=== PATIENT | male | born 1975 | race African-American/Black ===

== ENCOUNTER 2019-04-24 16:13 | Inpatient (IN) | payer MEDICAID ==
[~2019-04-24] VITALS: Ht 175.3 cm; Wt 112.6 kg
[2019-04-24] MEDS ORDERED: KETOROLAC 30MG/ML VIAL IV ONE (19:45)
[2019-04-24 23:09] LABS: HEMATOCRIT. 40.8 % (42.0-52.0); HEMOGLOBIN. 13.1 g/dL (14.0-18.0); MEAN CORPUSCULAR HEMOGLOBIN 22.3 pg (28.0-32.0); MEAN CORPUSCULAR VOLUME 69.7 fL (80.0-94.0); MEAN PLATELET VOLUME 9.3 fl (7.4-10.4); PLATELET 193 x1000/uL (130-400); RED BLOOD CELL COUNT 5.86 mill/uL (4.7-6.1); RED CELL DISTRIBUTION WIDTH 16.2 % (11.6-14.6)
[2019-04-24 23:10] LABS: CHLORIDE 99 mEq/L (98-107)
[2019-04-25] MEDS ORDERED: SODIUM CHLORIDE 0.9% 1000ML BAG (SEPSIS BOLUS) IV ONE (00:15)
[2019-04-25] MEDS ORDERED: MORPHINE SULFATE 4 MG/ML CPJ (NOT FOR IM USE) IV ONE (00:15)
[2019-04-25] MEDS ORDERED: LEVOFLOXACIN 750MG PREMIX 150 ML IV ONE (00:15)
[2019-04-25 04:22] LABS: ATYPICAL LYMPHOCYTES 1; PLATELET ESTIMATE NORMAL
[2019-04-25 09:26] VITALS: BP 147/91
[2019-04-25] MEDS ORDERED: DIPHENHYDRAMINE 50MG/ML VIAL IV PRN (10:15)
[2019-04-25] MEDS ORDERED: IPRATROPIUM/ALBUTEROL 0.5-3(2.5)MG/3ML NEB INH PRN (10:15)
[2019-04-25] MEDS ORDERED: MAGNESIUM/ALUMINUM HYDROXIDE/SIMETHICONE 30ML UDC PO PRN (10:15)
[2019-04-25] MEDS ORDERED: GUAIFENESIN 200MG/10ML SUGAR FREE UDC PO PRN (10:15)
[2019-04-25] MEDS ORDERED: DOCUSATE SODIUM 100MG CAPSULE PO PRN (10:15)
[2019-04-25] MEDS ORDERED: ENOXAPARIN 40MG/0.4ML SYR SUBCUT SCH (10:15)
[2019-04-25 11:31] LABS: PHOSPHORUS 2.7 mg/dL (2.5-4.9)
[2019-04-25] MEDS: HYDROCODONE/ACETAMINOPHEN 5/325MG TABLET PO PRN ×2 (11:54→17:56)
[2019-04-25] MEDS: ENOXAPARIN 30MG/0.3ML SYR SUBCUT SCH ×2 (11:54→21:11)
[2019-04-25 12:00] VITALS: BP 150/92
[2019-04-25] MEDS ORDERED: PNEUMOCOCCAL 23-VAL P-SAC VAC 0.5 ML IM ONE (14:45)
[2019-04-25 15:19] VITALS: BP 143/82
[2019-04-25 16:26] LABS: CREATINE KINASE MB FRACTION 1.3 ng/mL (0.5-3.6)
[2019-04-25 16:44] LABS: FERRITIN 1092 ng/mL (22-322)
[2019-04-25 16:56] LABS: HEPATITIS B SURFACE ANTIGEN NEGATIVE
[2019-04-25] MEDS: CEFEPIME 2,000 MG in DEXT 5% WATER 100 ML IV SCH (17:15)
[2019-04-25 17:25] LABS: HEPATITIS A AB IGM NEGATIVE (NEGATIVE)
[2019-04-25] MEDS ORDERED: DEXTROSE 50% WATER 50ML SYRINGE IV PRN (22:00)
[2019-04-26] VITALS (7 sets, daily range): BP systolic 128–155; BP diastolic 71–89
[2019-04-26] MEDS: ACETAMINOPHEN 325MG TABLET PO PRN (00:12)
[2019-04-26 00:48] LABS: CREATINE KINASE MB FRACTION 1.1 ng/mL (0.5-3.6)
[2019-04-26] MEDS: LEVOFLOXACIN 500MG PREMIX 100 ML IV SCH (04:34)
[2019-04-26] MEDS: CEFEPIME 2,000 MG in DEXT 5% WATER 100 ML IV SCH ×2 (06:36→18:17)
[2019-04-26] MEDS: BLOOD SUGAR DIAGNOSTIC STRIP TEST SCH ×4 (06:43→21:00)
[2019-04-26 06:50] LABS: HEMATOCRIT. 36.4 % (42.0-52.0); HEMOGLOBIN. 11.8 g/dL (14.0-18.0); MEAN CORPUSCULAR HEMOGLOBIN 22.6 pg (28.0-32.0); MEAN CORPUSCULAR VOLUME 69.6 fL (80.0-94.0); MEAN PLATELET VOLUME 9.5 fl (7.4-10.4); PLATELET 208 x1000/uL (130-400); RED BLOOD CELL COUNT 5.23 mill/uL (4.7-6.1); RED CELL DISTRIBUTION WIDTH 16.3 % (11.6-14.6)
[2019-04-26] MEDS: INSULIN LISPRO 100 UNITS/ML SUBCUT SCH ×4 (07:50→21:00)
[2019-04-26] MEDS: ENOXAPARIN 30MG/0.3ML SYR SUBCUT SCH ×2 (08:55→22:22)
[2019-04-26] MEDS: HYDROCODONE/ACETAMINOPHEN 5/325MG TABLET PO PRN ×2 (08:55→15:03)
[2019-04-26 09:49] LABS: CHLORIDE 97 mEq/L (98-107)
[2019-04-26 10:00] LABS: LDL CHOLESTEROL 108 mg/dL (5-100)
[2019-04-26 10:01] LABS: HDL CHOLESTEROL 27 mg/dL (40-59)
[2019-04-26] MEDS ORDERED: IBUPROFEN 600MG TABLET PO NR (16:00)
[2019-04-26 16:38] LABS: PLATELET ESTIMATE NORMAL
[2019-04-26] MEDS: IPRATROPIUM/ALBUTEROL 0.5-3(2.5)MG/3ML NEB HHN SCH ×2 (21:51→23:56)
[2019-04-26] MEDS: ACETYLCYSTEINE 100MG/ML 10% VIAL 4ML INH SCH (23:56)
[2019-04-27] VITALS: BP_SYST 142; BP_SYST 143; BP_DIAS 78; BP_DIAS 93
[2019-04-27] MEDS: LEVOFLOXACIN 500MG PREMIX 100 ML IV SCH (00:03)
[2019-04-27] MEDS: HYDROCODONE/ACETAMINOPHEN 5/325MG TABLET PO PRN (00:03)
[2019-04-27 04:00] VITALS: BP 148/65
[2019-04-27] MEDS: IPRATROPIUM/ALBUTEROL 0.5-3(2.5)MG/3ML NEB HHN SCH ×5 (04:00→20:52)
[2019-04-27] MEDS: ACETAMINOPHEN 325MG TABLET PO PRN ×4 (04:13→23:26)
[2019-04-27 05:07] LABS: HIV SCREEN 4G Non Reactive (Non Reactive)
[2019-04-27] MEDS: CEFEPIME 2,000 MG in DEXT 5% WATER 100 ML IV SCH ×3 (05:59→23:25)
[2019-04-27] MEDS: BLOOD SUGAR DIAGNOSTIC STRIP TEST SCH ×4 (06:27→21:06)
[2019-04-27 07:33] LABS: HEMATOCRIT. 38.1 % (42.0-52.0); HEMOGLOBIN. 12.3 g/dL (14.0-18.0); MEAN CORPUSCULAR HEMOGLOBIN 22.3 pg (28.0-32.0); MEAN CORPUSCULAR VOLUME 69.2 fL (80.0-94.0); MEAN PLATELET VOLUME 9.7 fl (7.4-10.4); PLATELET 253 x1000/uL (130-400); RED CELL DISTRIBUTION WIDTH 16.2 % (11.6-14.6)
[2019-04-27 07:34] LABS: CHLORIDE 95 mEq/L (98-107)
[2019-04-27] MEDS: INSULIN LISPRO 100 UNITS/ML SUBCUT SCH ×4 (07:50→21:06)
[2019-04-27 08:00] VITALS: BP 139/78
[2019-04-27] MEDS: ACETYLCYSTEINE 100MG/ML 10% VIAL 4ML INH SCH ×2 (08:27→16:23)
[2019-04-27] MEDS: ENOXAPARIN 30MG/0.3ML SYR SUBCUT SCH ×2 (08:35→21:04)
[2019-04-27 12:00] VITALS: BP 158/91
[2019-04-27 14:33] LABS: PLATELET ESTIMATE NORMAL
[2019-04-27 16:00] VITALS: BP 149/91
[2019-04-27 20:00] VITALS: BP 173/100
[2019-04-27] MEDS: CLONIDINE 0.1MG TABLET PO PRN (21:04)
[2019-04-27] MEDS: IBUPROFEN 600MG TABLET PO PRN (21:05)
[2019-04-27] MEDS: ONDANSETRON HCL 4MG/2ML INJ IV PRN (23:25)
[2019-04-28] VITALS: BP 143/93
[2019-04-28] MEDS: IPRATROPIUM/ALBUTEROL 0.5-3(2.5)MG/3ML NEB HHN SCH ×6 (00:03→20:19)
[2019-04-28] MEDS: ACETYLCYSTEINE 100MG/ML 10% VIAL 4ML INH SCH ×2 (00:03→09:40)
[2019-04-28] MEDS: LEVOFLOXACIN 500MG PREMIX 100 ML IV SCH (01:00)
[2019-04-28 04:00] VITALS: BP 109/61
[2019-04-28 06:10] LABS: CHLORIDE 95 mEq/L (98-107)
[2019-04-28 06:28] LABS: HEMATOCRIT. 35.3 % (42.0-52.0); HEMOGLOBIN. 11.5 g/dL (14.0-18.0); MEAN CORPUSCULAR HEMOGLOBIN 22.6 pg (28.0-32.0); MEAN CORPUSCULAR VOLUME 69.5 fL (80.0-94.0); MEAN PLATELET VOLUME 9.9 fl (7.4-10.4); PLATELET 267 x1000/uL (130-400); RED BLOOD CELL COUNT 5.08 mill/uL (4.7-6.1); RED CELL DISTRIBUTION WIDTH 16.2 % (11.6-14.6)
[2019-04-28] MEDS: BLOOD SUGAR DIAGNOSTIC STRIP TEST SCH ×4 (06:45→20:21)
[2019-04-28] MEDS: INSULIN LISPRO 100 UNITS/ML SUBCUT SCH ×4 (07:50→20:38)
[2019-04-28 08:00] VITALS: BP 109/69
[2019-04-28] MEDS: ACETAMINOPHEN 325MG TABLET PO PRN (08:52)
[2019-04-28] MEDS: ENOXAPARIN 30MG/0.3ML SYR SUBCUT SCH ×2 (08:52→19:33)
[2019-04-28] MEDS ORDERED: POTASSIUM CHLORIDE 20MEQ TABLET SR PO SCH (11:15)
[2019-04-28 12:07] VITALS: BP 126/80
[2019-04-28 14:17] LABS: PLATELET ESTIMATE NORMAL
[2019-04-28 15:12] VITALS: BP 140/70
[2019-04-28] MEDS ORDERED: ACETAMINOPHEN 325MG TABLET PO PRN (17:30)
[2019-04-28] MEDS: ONDANSETRON HCL 4MG/2ML INJ IV PRN (17:38)
[2019-04-28] MEDS: CEFEPIME 2,000 MG in DEXT 5% WATER 100 ML IV SCH (17:38)
[2019-04-28] MEDS: HYDROCODONE/ACETAMINOPHEN 5/325MG TABLET PO PRN (17:39)
[2019-04-28 20:00] VITALS: BP 131/68
[2019-04-28] MEDS ORDERED: BISACODYL 10MG SUPP PR PRN (21:00)
[2019-04-28] MEDS ORDERED: DOCUSATE SODIUM 100MG CAPSULE PO SCH (21:00)
[2019-04-28] MEDS ORDERED: SODIUM CHLORIDE 0.9% 1,000 ML IV NR (21:45)
[2019-04-29] VITALS (22 sets, daily range): BP systolic 116–198; BP diastolic 59–125
[2019-04-29] MEDS: LEVOFLOXACIN 500MG PREMIX 100 ML IV SCH (00:20)
[2019-04-29] MEDS: ONDANSETRON HCL 4MG/2ML INJ IV PRN (00:32)
[2019-04-29] MEDS: IBUPROFEN 600MG TABLET PO PRN (01:02)
[2019-04-29 05:20] LABS: BASOPHILS % 0.4 % (0.0-2.0); EOSINOPHILS % 0.1 % (0.0-5.0); HEMATOCRIT. 36.7 % (42.0-52.0); HEMOGLOBIN. 11.6 g/dL (14.0-18.0); LYMPHOCYTES % 34.1 % (20.0-50.0); MEAN CORPUSCULAR HEMOGLOBIN 22.1 pg (28.0-32.0); MEAN CORPUSCULAR VOLUME 69.8 fL (80.0-94.0); MEAN PLATELET VOLUME 9.8 fl (7.4-10.4); MONOCYTES % 5.7 % (2.0-8.0); NEUTROPHILS % 59.7 % (40.0-76.0); PLATELET 325 x1000/uL (130-400); RED BLOOD CELL COUNT 5.25 mill/uL (4.7-6.1); RED CELL DISTRIBUTION WIDTH 15.9 % (11.6-14.6)
[2019-04-29] MEDS: IPRATROPIUM/ALBUTEROL 0.5-3(2.5)MG/3ML NEB HHN SCH ×2 (05:25→09:40)
[2019-04-29] MEDS: CEFEPIME 2,000 MG in DEXT 5% WATER 100 ML IV SCH (05:38)
[2019-04-29] MEDS: BLOOD SUGAR DIAGNOSTIC STRIP TEST SCH ×4 (06:09→20:31)
[2019-04-29 06:12] LABS: CHLORIDE 96 mEq/L (98-107)
[2019-04-29] MEDS: INSULIN LISPRO 100 UNITS/ML SUBCUT SCH ×4 (07:45→20:32)
[2019-04-29] MEDS: ENOXAPARIN 30MG/0.3ML SYR SUBCUT SCH (08:15)
[2019-04-29] MEDS ORDERED: BUPIVACAINE HCL/PF 0.25% (2.5MG/ML) 10ML ONE (08:16)
[2019-04-29] MEDS ORDERED: BUPIVACAINE/EPINEPH/PF 0.25%/0.0005 10ML ONE (08:16)
[2019-04-29] MEDS ORDERED: TETRACAINE/BENZOCAINE/BUTAMBEN 20 GM SPRAY MM ONE ×2 (08:17→10:37)
[2019-04-29] MEDS ORDERED: MIDAZOLAM HCL 2 MG/2 ML VIAL ONE (10:17)
[2019-04-29] MEDS ORDERED: FENTANYL CITRATE/PF 50MCG/ML 2ML VIAL ONE (10:17)
[2019-04-29] MEDS ORDERED: PROPOFOL 200MG/20ML VIAL IV ONE (10:17)
[2019-04-29] MEDS ORDERED: ROCURONIUM BROMIDE 10MG/ML VIAL 5ML IV ONE (10:17)
[2019-04-29] MEDS ORDERED: NEOSTIGMINE METHYLSULFATE 1MG/ML 10 ML VIAL ONE (10:17)
[2019-04-29] MEDS ORDERED: GLYCOPYRROLATE 0.2 MG/ML 2ML VIAL ONE (10:18)
[2019-04-29] MEDS ORDERED: ONDANSETRON HCL 4MG/2ML INJ ONE (10:55)
[2019-04-29] MEDS ORDERED: DEXAMETHASONE 4MG/ML 1ML VIAL ONE (10:55)
[2019-04-29] MEDS ORDERED: HYDROMORPHONE HCL/PF 2MG/ML (OR) ONE ×2 (10:56→13:03)
[2019-04-29] MEDS ORDERED: FENTANYL CITRATE/PF 50MCG/ML 5ML VIAL ONE (10:58)
[2019-04-29] MEDS ORDERED: BACITRACIN 50,000 UNITS/VIAL ONE (11:53)
[2019-04-29] MEDS ORDERED: MEPERIDINE HCL/PF 25MG/ML CPJ IV PRN (12:00)
[2019-04-29] MEDS ORDERED: LABETALOL HCL 5MG/ML VIAL 20ML IV PRN (12:00)
[2019-04-29] MEDS ORDERED: HYDROMORPHONE HCL/PF 2MG/ML CPJ IV PRN (12:00)
[2019-04-29] MEDS ORDERED: ONDANSETRON HCL 4MG/2ML INJ IV PRN ×2 (12:00→14:00)
[2019-04-29] MEDS ORDERED: LABETALOL HCL 5MG/ML VIAL 20ML IV ONE (13:03)
[2019-04-29] MEDS ORDERED: SODIUM CHLORIDE 0.9% 10ML VIAL ONE (13:03)
[2019-04-29] MEDS ORDERED: SKIN ADHESIVE 0.7 GM EA TOP ONE (13:23)
[2019-04-29] MEDS ORDERED: SODIUM CHLORIDE 0.9% 500 ML IV PRN (13:47)
[2019-04-29] MEDS ORDERED: ACETAMINOPHEN 325MG TABLET PO PRN (14:00)
[2019-04-29] MEDS ORDERED: OXYCODONE HCL/ACETAMINOPHEN 5/325MG TABLET PO PRN (14:00)
[2019-04-29] MEDS ORDERED: FAMOTIDINE 20MG/2ML VIAL IV SCH (14:00)
[2019-04-29] MEDS ORDERED: ALBUMIN HUMAN 12.5G/250ML (5%) IV PRN (14:00)
[2019-04-29 14:15] LABS: BG BASE EXCESS 2.5 mmol/L (-2.0-2.0); BG CARBOXYHEMOGLOBIN 0.3 % (0.5-1.5); BG DEOXYHEMOGLOBIN 5.7 % (0.0-5.0); BG FRACTION INSPIRED OXYGEN 60; BG HCO3 ACT 28.7 mmol/L (22.0-26.0); BG METHEMOGLOBIN 0.4 % (0.0-1.5); BG OXYGEN SATURATION 94.3 % (92.0-98.5); BG OXYHEMOGLOBIN 93.6 % (94.0-97.0); BG PCO2 51.5 mmHg (35.0-45.0); BG PH 7.364 (7.350-7.450); BG PO2 78.6 mmHg (75.0-100.0); BG SAMPLE SITE A-LINE; BG TOTAL HEMOGLOBIN 12.3 g/dL (12.0-18.0); BG VENT MODE MASK - SIMPLE
[2019-04-29] MEDS ORDERED: DIPHENHYDRAMINE INJ IV PRN (15:00)
[2019-04-29] MEDS ORDERED: NALOXONE INJ IV PRN (15:00)
[2019-04-29] MEDS ORDERED: HYDROMORPHONE PCA 10MG/50ML IV PRN (15:00)
[2019-04-29] MEDS ORDERED: VANCOMYCIN 2,000 MG in DEXT 5% WATER 500 ML IV SCH (15:00)
[2019-04-29] MEDS ORDERED: ONDANSETRON INJ IV PRN (15:00)
[2019-04-29] MEDS: PIPERACILLIN/TAZ 3.375G PREMIX 50 ML IV SCH ×3 (15:37→23:27)
[2019-04-29] MEDS: DEXT 5%/0.45% NACL 1000ML 1,000 ML IV SCH (15:37)
[2019-04-29] MEDS ORDERED: IPRATROPIUM/ALBUTEROL 0.5-3(2.5)MG/3ML NEB HHN SCH (16:00)
[2019-04-29] MEDS: MAGNESIUM HYDROXIDE 400MG/5ML 30ML UDC PO SCH ×3 (16:00→23:27)
[2019-04-29 16:35] LABS: HEMATOCRIT. 35.8 % (42.0-52.0); HEMOGLOBIN. 11.5 g/dL (14.0-18.0); MEAN CORPUSCULAR HEMOGLOBIN 22.5 pg (28.0-32.0); MEAN PLATELET VOLUME 9.7 fl (7.4-10.4); PLATELET 355 x1000/uL (130-400); RED BLOOD CELL COUNT 5.12 mill/uL (4.7-6.1); RED CELL DISTRIBUTION WIDTH 15.8 % (11.6-14.6)
[2019-04-29 16:50] LABS: CHLORIDE 100 mEq/L (98-107)
[2019-04-29] MEDS: DOCUSATE SODIUM 100MG CAPSULE PO SCH (17:00)
[2019-04-29 17:39] LABS: PLATELET ESTIMATE NORMAL
[2019-04-29] MEDS: MORPHINE SULFATE 2 MG/ML CPJ (NOT FOR IM USE) IV PRN ×3 (19:26→23:27)
[2019-04-29] MEDS: FAMOTIDINE 20MG/2ML VIAL IV SCH (20:31)
[2019-04-29] MEDS: CLONIDINE 0.1MG TABLET PO PRN (21:27)
[2019-04-29] MEDS: LISINOPRIL 20MG TABLET PO SCH (22:28)
[2019-04-29] MEDS: ALPRAZOLAM 0.25 MG TABLET PO PRN (23:27)
[2019-04-30] VITALS (44 sets, daily range): BP systolic 112–205; BP diastolic 46–110
[2019-04-30] MEDS: IPRATROPIUM/ALBUTEROL 0.5-3(2.5)MG/3ML NEB HHN SCH ×6 (00:49→21:02)
[2019-04-30] MEDS: ACETYLCYSTEINE 100MG/ML 10% VIAL 4ML INH SCH ×3 (00:50→16:30)
[2019-04-30] MEDS: MORPHINE SULFATE 2 MG/ML CPJ (NOT FOR IM USE) IV PRN ×2 (01:34→05:59)
[2019-04-30] MEDS: VANCOMYCIN 2,000 MG in DEXT 5% WATER 500 ML IV SCH ×2 (01:41→13:21)
[2019-04-30] MEDS: MAGNESIUM HYDROXIDE 400MG/5ML 30ML UDC PO SCH ×4 (03:05→16:47)
[2019-04-30] MEDS: DEXT 5%/0.45% NACL 1000ML 1,000 ML IV SCH (03:46)
[2019-04-30 06:01] LABS: HEMATOCRIT. 32.5 % (42.0-52.0); HEMOGLOBIN. 10.5 g/dL (14.0-18.0); MEAN CORPUSCULAR HEMOGLOBIN 22.4 pg (28.0-32.0); MEAN CORPUSCULAR VOLUME 69.1 fL (80.0-94.0); MEAN PLATELET VOLUME 9.3 fl (7.4-10.4); PLATELET 360 x1000/uL (130-400); RED CELL DISTRIBUTION WIDTH 15.8 % (11.6-14.6)
[2019-04-30 06:06] LABS: CHLORIDE 98 mEq/L (98-107)
[2019-04-30] MEDS: PIPERACILLIN/TAZ 3.375G PREMIX 50 ML IV SCH ×3 (06:18→17:34)
[2019-04-30 07:40] LABS: PLATELET ESTIMATE NORMAL
[2019-04-30] MEDS: BLOOD SUGAR DIAGNOSTIC STRIP TEST SCH ×4 (07:50→20:54)
[2019-04-30] MEDS: INSULIN LISPRO 100 UNITS/ML SUBCUT SCH ×4 (08:20→21:00)
[2019-04-30] MEDS: FAMOTIDINE 20MG/2ML VIAL IV SCH ×2 (09:30→20:54)
[2019-04-30] MEDS: LISINOPRIL 20MG TABLET PO SCH (09:31)
[2019-04-30] MEDS: DOCUSATE SODIUM 100MG CAPSULE PO SCH ×2 (09:31→16:48)
[2019-04-30] MEDS: KETOROLAC 15MG/ML VIAL IV SCH ×3 (10:19→22:10)
[2019-05-01] VITALS (46 sets, daily range): BP systolic 100–188; BP diastolic 44–106
[2019-05-01] MEDS: IPRATROPIUM/ALBUTEROL 0.5-3(2.5)MG/3ML NEB HHN SCH ×6 (00:25→20:21)
[2019-05-01] MEDS: ACETYLCYSTEINE 100MG/ML 10% VIAL 4ML INH SCH ×3 (00:25→16:40)
[2019-05-01] MEDS: PIPERACILLIN/TAZ 3.375G PREMIX 50 ML IV SCH ×4 (00:38→17:45)
[2019-05-01] MEDS: VANCOMYCIN 2,000 MG in DEXT 5% WATER 500 ML IV SCH ×2 (02:02→14:57)
[2019-05-01] MEDS: KETOROLAC 15MG/ML VIAL IV SCH ×4 (04:40→21:26)
[2019-05-01] MEDS: FAMOTIDINE 20MG/2ML VIAL IV SCH ×2 (08:17→21:27)
[2019-05-01] MEDS: BLOOD SUGAR DIAGNOSTIC STRIP TEST SCH ×4 (08:17→21:42)
[2019-05-01] MEDS: DOCUSATE SODIUM 100MG CAPSULE PO SCH ×2 (08:17→16:05)
[2019-05-01] MEDS: LISINOPRIL 20MG TABLET PO SCH (08:17)
[2019-05-01] MEDS: INSULIN LISPRO 100 UNITS/ML SUBCUT SCH ×4 (08:17→21:59)
[2019-05-01 10:01] LABS: HEMATOCRIT. 34.8 % (42.0-52.0); HEMOGLOBIN. 11.3 g/dL (14.0-18.0); MEAN CORPUSCULAR HEMOGLOBIN 22.3 pg (28.0-32.0); MEAN CORPUSCULAR VOLUME 68.8 fL (80.0-94.0); MEAN PLATELET VOLUME 8.5 fl (7.4-10.4); PLATELET 482 x1000/uL (130-400); RED BLOOD CELL COUNT 5.05 mill/uL (4.7-6.1); RED CELL DISTRIBUTION WIDTH 15.9 % (11.6-14.6)
[2019-05-01 10:22] LABS: ATYPICAL LYMPHOCYTES 1; PLATELET ESTIMATE INCREASED
[2019-05-01 10:53] LABS: CHLORIDE 96 mEq/L (98-107)
[2019-05-01] MEDS ORDERED: KCL 10MEQ/50ML PREMIX 150 ML IV PRN (11:30)
[2019-05-01] MEDS ORDERED: KCL 10MEQ/50ML PREMIX 200 ML IV PRN (11:30)
[2019-05-01] MEDS: KCL 10MEQ/50ML PREMIX 100 ML IV PRN ×2 (12:48→13:55)
[2019-05-01] MEDS: ALPRAZOLAM 0.25 MG TABLET PO PRN (19:39)
[2019-05-01] MEDS: OXYCODONE HCL/ACETAMINOPHEN 5/325MG TABLET PO PRN (19:40)
[2019-05-02] VITALS (40 sets, daily range): BP systolic 103–168; BP diastolic 57–102
[2019-05-02] MEDS: ACETYLCYSTEINE 100MG/ML 10% VIAL 4ML INH SCH (00:19)
[2019-05-02] MEDS: IPRATROPIUM/ALBUTEROL 0.5-3(2.5)MG/3ML NEB HHN SCH ×5 (00:19→20:18)
[2019-05-02] MEDS: PIPERACILLIN/TAZ 3.375G PREMIX 50 ML IV SCH ×4 (00:27→18:48)
[2019-05-02] MEDS: MORPHINE SULFATE 2 MG/ML CPJ (NOT FOR IM USE) IV PRN ×5 (00:28→18:45)
[2019-05-02] MEDS: VANCOMYCIN 2,000 MG in DEXT 5% WATER 500 ML IV SCH (02:06)
[2019-05-02] MEDS: ALPRAZOLAM 0.25 MG TABLET PO PRN ×2 (02:51→22:03)
[2019-05-02] MEDS: KETOROLAC 15MG/ML VIAL IV SCH ×4 (04:46→22:04)
[2019-05-02 04:49] LABS: HEMOGLOBIN. 10.2 g/dL (14.0-18.0); MEAN CORPUSCULAR VOLUME 69.1 fL (80.0-94.0); MEAN PLATELET VOLUME 8.5 fl (7.4-10.4); PLATELET 477 x1000/uL (130-400); RED BLOOD CELL COUNT 4.63 mill/uL (4.7-6.1); RED CELL DISTRIBUTION WIDTH 15.7 % (11.6-14.6)
[2019-05-02 04:59] LABS: CHLORIDE 97 mEq/L (98-107)
[2019-05-02] MEDS: INSULIN LISPRO 100 UNITS/ML SUBCUT SCH ×4 (08:20→21:00)
[2019-05-02] MEDS: BLOOD SUGAR DIAGNOSTIC STRIP TEST SCH ×4 (08:37→21:00)
[2019-05-02] MEDS: FAMOTIDINE 20MG/2ML VIAL IV SCH ×2 (09:08→22:03)
[2019-05-02] MEDS: DOCUSATE SODIUM 100MG CAPSULE PO SCH ×2 (09:09→17:05)
[2019-05-02] MEDS: LISINOPRIL 20MG TABLET PO SCH (09:09)
[2019-05-02 13:19] LABS: PLATELET ESTIMATE INCREASED
[2019-05-02] MEDS: VANCOMYCIN 1250MG in DEXTROSE 5% WATER 250ML IV SCH ×2 (14:05→22:02)
[2019-05-02] MEDS: IBUPROFEN 600MG TABLET PO PRN (22:03)
[2019-05-03] VITALS (19 sets, daily range): BP systolic 98–159; BP diastolic 24–96
[2019-05-03] MEDS: IPRATROPIUM/ALBUTEROL 0.5-3(2.5)MG/3ML NEB HHN SCH ×4 (00:11→21:31)
[2019-05-03] MEDS: PIPERACILLIN/TAZ 3.375G PREMIX 50 ML IV SCH ×3 (00:30→12:00)
[2019-05-03] MEDS: MORPHINE SULFATE 2 MG/ML CPJ (NOT FOR IM USE) IV PRN (02:39)
[2019-05-03] MEDS: KETOROLAC 15MG/ML VIAL IV SCH (04:34)
[2019-05-03 05:29] LABS: HEMATOCRIT. 31.9 % (42.0-52.0); HEMOGLOBIN. 10.2 g/dL (14.0-18.0); MEAN CORPUSCULAR HEMOGLOBIN 22.1 pg (28.0-32.0); MEAN PLATELET VOLUME 8.1 fl (7.4-10.4); PLATELET 539 x1000/uL (130-400); RED BLOOD CELL COUNT 4.62 mill/uL (4.7-6.1); RED CELL DISTRIBUTION WIDTH 15.7 % (11.6-14.6)
[2019-05-03 05:40] LABS: CHLORIDE 99 mEq/L (98-107)
[2019-05-03] MEDS: VANCOMYCIN 1250MG in DEXTROSE 5% WATER 250ML IV SCH (05:45)
[2019-05-03] MEDS: INSULIN LISPRO 100 UNITS/ML SUBCUT SCH (07:20)
[2019-05-03] MEDS: LISINOPRIL 20MG TABLET PO SCH (09:09)
[2019-05-03] MEDS: FAMOTIDINE 20MG/2ML VIAL IV SCH ×2 (09:09→21:49)
[2019-05-03] MEDS: DOCUSATE SODIUM 100MG CAPSULE PO SCH ×2 (09:09→17:24)
[2019-05-03] MEDS: OXYCODONE HCL/ACETAMINOPHEN 5/325MG TABLET PO PRN ×4 (10:33→22:54)
[2019-05-03 11:26] LABS: PLATELET ESTIMATE INCREASED
[2019-05-03] MEDS: PIPERACILLIN/TAZOBACTAM 3.375 G in DEXT 5% WATER 100 ML IV SCH (14:31)
[2019-05-03 23:40] LABS: CLARITY URINE CLEAR (CLEAR); COLOR URINE YELLOW (YELLOW); KETONES URINE NEGATIVE (NEGATIVE); LEUKOCYTE ESTERASE URINE NEGATIVE (NEGATIVE); NITRITE URINE NEGATIVE (NEGATIVE); OCCULT BLOOD URINE NEGATIVE (NEGATIVE); PROTEIN URINE NEGATIVE (NEGATIVE); SPECIFIC GRAVITY URINE 1.009 (1.005-1.030); UROBILINOGEN URINE 0.2 E.U./dL (0.2-1.0)
[2019-05-04] VITALS (12 sets, daily range): BP systolic 110–155; BP diastolic 69–99
[2019-05-04] MEDS: PIPERACILLIN/TAZOBACTAM 3.375 G in DEXT 5% WATER 100 ML IV SCH ×5 (00:44→23:46)
[2019-05-04] MEDS: IPRATROPIUM/ALBUTEROL 0.5-3(2.5)MG/3ML NEB HHN SCH ×6 (01:15→21:42)
[2019-05-04] MEDS: OXYCODONE HCL/ACETAMINOPHEN 5/325MG TABLET PO PRN ×5 (02:45→23:30)
[2019-05-04 06:52] LABS: HEMATOCRIT. 29.6 % (42.0-52.0); HEMOGLOBIN. 9.7 g/dL (14.0-18.0); MEAN CORPUSCULAR HEMOGLOBIN 22.4 pg (28.0-32.0); MEAN CORPUSCULAR VOLUME 68.4 fL (80.0-94.0); MEAN PLATELET VOLUME 8.2 fl (7.4-10.4); PLATELET 619 x1000/uL (130-400); RED BLOOD CELL COUNT 4.32 mill/uL (4.7-6.1); RED CELL DISTRIBUTION WIDTH 15.3 % (11.6-14.6)
[2019-05-04 07:12] LABS: PHOSPHORUS 4.4 mg/dL (2.5-4.9)
[2019-05-04] MEDS ORDERED: MORPHINE SULFATE 2 MG/ML CPJ (NOT FOR IM USE) IV PRN (08:15)
[2019-05-04] MEDS ORDERED: OXYCODONE HCL/ACETAMINOPHEN 5/325MG TABLET PO PRN ×2 (08:15→11:00)
[2019-05-04] MEDS: FAMOTIDINE 20MG/2ML VIAL IV SCH (08:50)
[2019-05-04] MEDS: DOCUSATE SODIUM 100MG CAPSULE PO SCH ×2 (08:51→17:50)
[2019-05-04 09:36] LABS: PLATELET ESTIMATE INCREASED
[2019-05-04] MEDS: FAMOTIDINE 20MG TABLET PO SCH (17:50)
[2019-05-05] VITALS (12 sets, daily range): BP systolic 123–154; BP diastolic 70–103
[2019-05-05] MEDS: IPRATROPIUM/ALBUTEROL 0.5-3(2.5)MG/3ML NEB HHN SCH ×6 (01:14→21:00)
[2019-05-05] MEDS: OXYCODONE HCL/ACETAMINOPHEN 5/325MG TABLET PO PRN ×4 (02:38→20:46)
[2019-05-05] MEDS: PIPERACILLIN/TAZOBACTAM 3.375 G in DEXT 5% WATER 100 ML IV SCH ×2 (05:55→12:21)
[2019-05-05 07:09] LABS: HEMATOCRIT. 29.7 % (42.0-52.0); HEMOGLOBIN. 9.9 g/dL (14.0-18.0); MEAN CORPUSCULAR HEMOGLOBIN 22.7 pg (28.0-32.0); MEAN CORPUSCULAR VOLUME 68.1 fL (80.0-94.0); MEAN PLATELET VOLUME 8.2 fl (7.4-10.4); PLATELET 649 x1000/uL (130-400); RED BLOOD CELL COUNT 4.36 mill/uL (4.7-6.1); RED CELL DISTRIBUTION WIDTH 15.4 % (11.6-14.6)
[2019-05-05 07:10] LABS: PHOSPHORUS 4.3 mg/dL (2.5-4.9)
[2019-05-05] MEDS: DOCUSATE SODIUM 100MG CAPSULE PO SCH ×2 (08:32→16:55)
[2019-05-05] MEDS: FAMOTIDINE 20MG TABLET PO SCH ×2 (08:32→16:55)
[2019-05-05] MEDS ORDERED: COLCHICINE 0.6MG TABLET PO SCH (12:45)
[2019-05-05] MEDS: COLCHICINE 0.6MG TABLET PO SCH ×2 (16:54→23:16)
[2019-05-05] MEDS ORDERED: PIPERACILLIN/TAZ 2.25G PREMIX 50 ML IV SCH (18:00)
[2019-05-05 18:33] LABS: PLATELET ESTIMATE INCREASED
[2019-05-05] MEDS: PIPERACILLIN/TAZOBACTAM 2.25 G in DEXTROSE 5% WATER 50 ML IV SCH (20:00)
[2019-05-05] MEDS: CLONIDINE 0.1MG TABLET PO PRN (22:17)
[2019-05-06] VITALS (12 sets, daily range): BP systolic 111–156; BP diastolic 52–95
[2019-05-06] MEDS: IPRATROPIUM/ALBUTEROL 0.5-3(2.5)MG/3ML NEB HHN SCH ×6 (00:41→21:53)
[2019-05-06] MEDS: PIPERACILLIN/TAZOBACTAM 2.25 G in DEXTROSE 5% WATER 50 ML IV SCH ×4 (02:03→20:20)
[2019-05-06 06:37] LABS: HEMATOCRIT. 29.8 % (42.0-52.0); HEMOGLOBIN. 9.6 g/dL (14.0-18.0); MEAN CORPUSCULAR HEMOGLOBIN 22.2 pg (28.0-32.0); MEAN CORPUSCULAR VOLUME 68.6 fL (80.0-94.0); MEAN PLATELET VOLUME 8.3 fl (7.4-10.4); PLATELET 662 x1000/uL (130-400); RED BLOOD CELL COUNT 4.34 mill/uL (4.7-6.1); RED CELL DISTRIBUTION WIDTH 15.7 % (11.6-14.6)
[2019-05-06] MEDS: DOCUSATE SODIUM 100MG CAPSULE PO SCH ×2 (08:48→17:11)
[2019-05-06] MEDS: FAMOTIDINE 20MG TABLET PO SCH ×2 (08:48→17:11)
[2019-05-06] MEDS: COLCHICINE 0.6MG TABLET PO SCH ×2 (08:48→20:20)
[2019-05-06] MEDS: OXYCODONE HCL/ACETAMINOPHEN 5/325MG TABLET PO PRN ×2 (08:49→20:19)
[2019-05-06 11:17] LABS: PLATELET ESTIMATE INCREASED
[2019-05-07] VITALS (8 sets, daily range): BP systolic 109–153; BP diastolic 61–90
[2019-05-07] MEDS: IPRATROPIUM/ALBUTEROL 0.5-3(2.5)MG/3ML NEB HHN SCH ×4 (00:47→12:00)
[2019-05-07 06:48] LABS: HEMATOCRIT. 29.5 % (42.0-52.0); MEAN CORPUSCULAR HEMOGLOBIN 22.9 pg (28.0-32.0); MEAN CORPUSCULAR VOLUME 67.8 fL (80.0-94.0); MEAN PLATELET VOLUME 8.1 fl (7.4-10.4); PLATELET 697 x1000/uL (130-400); RED BLOOD CELL COUNT 4.35 mill/uL (4.7-6.1); RED CELL DISTRIBUTION WIDTH 15.9 % (11.6-14.6)
[2019-05-07 07:02] LABS: PHOSPHORUS 3.5 mg/dL (2.5-4.9)
[2019-05-07] MEDS: FAMOTIDINE 20MG TABLET PO SCH (08:47)
[2019-05-07] MEDS: DOCUSATE SODIUM 100MG CAPSULE PO SCH (08:47)
[2019-05-07] MEDS: COLCHICINE 0.6MG TABLET PO SCH (08:47)
[2019-05-07 11:10] LABS: PLATELET ESTIMATE INCREASED
== END 2019-05-07 15:29 | disposition home health service (06) | DRG 710 ==
LOC: ER 16:13 → EDBEDREQ 04-25 00:32 → 7WST 04-25 01:21 → EDBEDREQTM 04-25 01:23 → EDBEDREQ 04-25 01:23 → ENRESERV 04-25 07:39 → 6WST 04-25 19:41 → CVICU 04-29 11:17 → 3WST 05-03 06:37
PROVIDERS: ADMIT Internal Medicine; ATTEND Internal Medicine
PROC: 0BQ Respiratory System, Repair (ICD-10-PCS; principal; 2019-04-29)
PROC: 0W9900Z Drainage of Right Pleural Cavity with Drainage Device, Open Approach (ICD-10-PCS; 2019-04-29)
PROC: 0BNK0ZZ Release Right Lung, Open Approach (ICD-10-PCS; 2019-04-29)
PROC: 0BJ08ZZ Inspection of Tracheobronchial Tree, Via Natural or Artificial Opening Endoscopic (ICD-10-PCS; 2019-04-29)
DX: A41.9 Sepsis, unspecified organism (principal); N17.0 Acute kidney failure with tubular necrosis; J85.1 Abscess of lung with pneumonia; J90 Pleural effusion, not elsewhere classified; J96.02 Acute respiratory failure with hypercapnia; J96.01 Acute respiratory failure with hypoxia; M62.82 Rhabdomyolysis; E66.01 Morbid (severe) obesity due to excess calories; I10 Essential (primary) hypertension; E87.6 Hypokalemia; B96.89 Other specified bacterial agents as the cause of diseases classified elsewhere; E78.5 Hyperlipidemia, unspecified; R26.9 Unspecified abnormalities of gait and mobility; E11.65 Type 2 diabetes mellitus with hyperglycemia; T36.95XA Adverse effect of unspecified systemic antibiotic, initial encounter; E87.1 Hypo-osmolality and hyponatremia; R17 Unspecified jaundice; R65.20 Severe sepsis without septic shock; D50.9 Iron deficiency anemia, unspecified; Z68.36 Body mass index [BMI] 36.0-36.9, adult; Z82.49 Family history of ischemic heart disease and other diseases of the circulatory system; Y92.89 Other specified places as the place of occurrence of the external cause
CPT/HCPCS: 36415; 36600; 71045; 71250; 76604; 76770; 80048; 80061; 80202; 82375; 82550; 82553; 82728; 82805; 82962; 83036; 83540; 83550; 83605; 83615; 83735; 83880; 84100; 84145; 84443; 84484; 86705; 86709; 86803; 86850; 86900; 86920; 87070; 87075; 87076; 87077; 87340; 87389; 88108; 88305; 88312; 90732; 93005; 93970; 94640; 96374; 97116; 97161; 97164; 97165; 97168; 97530; 97535; 99285; C1751; C1893; J0171; J0692; J1100; J1170; J1200; J1650; J1815; J1885; J1956; J2250; J2270; J2405; J2543; J2704; J2710; J3010; J3370; J3480; J3490; J7050; J7060; J7608; J7620; A4315